=== PATIENT | female | born 2000 | race African-American/Black ===

== ENCOUNTER 2023-05-10 17:38 | Emergency (ER) | payer OTHER ==
[~2023-05-10] VITALS: Ht 165.1 cm; Wt 63.0 kg
[2023-05-10 17:59] VITALS: BP 108/51; PULSE 72; RESP 20; TEMP 98.1; O2SAT 99
[2023-05-10] MEDS ORDERED: DOXY-456 MT (18:07)
[2023-05-10] MEDS ORDERED: CEFTRIAXONE SODIUM 500 MG/VIAL IM ONE (18:15)
[2023-05-10] MEDS ORDERED: DOXYCYCLINE HYCLATE 100MG CAPSULE PO ONE (18:15)
[2023-05-10] MEDS ORDERED: CEFTRIAXONE SODIUM 500 MG/VIAL IM NR (21:00)
[2023-05-10] MEDS ORDERED: DOXYCYCLINE HYCLATE 100MG CAPSULE PO NR (21:00)
[2023-05-13 10:12] LABS: CHLAMYDIA TRACHOMATIS NAA Negative (Negative); NEISSERIA GONORRHOEAE NAA Negative (Negative)
== END 2023-05-10 21:31 | disposition home or self-care (01) ==
LOC: ER 17:38
DX: Z20.2 Contact with and (suspected) exposure to infections with a predominantly sexual mode of transmission (principal)
CPT/HCPCS: 87491; 87591; 99283; J0696; Z7610 ×2

== ENCOUNTER 2023-07-07 10:39 | Emergency (ER) | payer OTHER ==
[~2023-07-07] VITALS: Ht 165.1 cm; Wt 57.6 kg
[~2023-07-07 10:39] MED LIST: DOXY-456 MT
[2023-07-07 10:55] VITALS: TEMP 98.4; O2SAT 100
[2023-07-07 11:22] LABS: ADD RBC MORPHOLOGY YES; BASOPHILS % 0.3 % (0.0-2.0); DIFFERENTIAL COMMENT 1; HEMATOCRIT. 41.4 % (36.0-48.0); HEMOGLOBIN. 13.3 g/dL (12.0-16.0); LYMPHOCYTES % 11.5 % (20.0-50.0); MEAN CORPUSCULAR HEMOGLOBIN 21.9 pg (28.0-32.0); MEAN CORPUSCULAR HGB CONC 32.1 g/dL (31.0-37.0); MEAN CORPUSCULAR VOLUME 68.2 fL (81.0-99.0); MONOCYTES % 4.9 % (2.0-8.0); NEUTROPHILS % 83.3 % (40.0-76.0); PLATELET 316 x1000/uL (130-400); RED BLOOD CELL COUNT 6.07 mill/uL (4.2-5.4); RED CELL DISTRIBUTION WIDTH 17.3 % (11.6-14.6); WHITE BLOOD COUNT 10.8 x1000/uL (4.5-11.0)
[2023-07-07] MEDS ORDERED: DICYCLOMINE 10 MG/5 ML ORAL SYR PO STA (11:39)
[2023-07-07 11:49] LABS: ALANINE AMINOTRANSFERASE 22 IU/L (10-49); ASPARTATE AMINOTRANSFERASE 67 IU/L (<34); BILIRUBIN TOTAL 0.8 mg/dL (0.1-1.0); CALCIUM 9.7 mg/dL (8.7-10.4); CARBON DIOXIDE 22 mEq/L (21-32); CHLORIDE 109 mEq/L (98-107); CREATININE 0.8 mg/dL (0.6-1.0); GLUCOSE 100 mg/dL (70-105); POTASSIUM 3.5 mEq/L (3.5-5.1); PROTEIN TOTAL 8.4 g/dL (6.0-8.3); SODIUM 144 mEq/L (136-145); UREA NITROGEN BLOOD 9 mg/dL (9-23)
[2023-07-07 11:55] LABS: MICROCYTOSIS 3+; PLATELET ESTIMATE NORMAL
[2023-07-07 11:56] LABS: ANISOCYTOSIS 1+
[2023-07-07] MEDS: DIPHENHYDRAMINE 50MG/ML VIAL IV ONE (11:57)
[2023-07-07] MEDS: MAGNESIUM/ALUMINUM HYDROXIDE/SIMETHICONE 30ML UDC PO STA (11:57)
[2023-07-07] MEDS: HALOPERIDOL LACTATE 5MG/ML VIAL IM ONE (11:57)
[2023-07-07] MEDS: SODIUM CHLORIDE 0.9% 1,000 ML IV ONE ×2 (11:57→14:33)
[2023-07-07] MEDS: DICYCLOMINE HCL 10MG CAPSULE PO NR (12:22)
[2023-07-07] MEDS: KETOROLAC 30MG/ML VIAL IV ONE (12:30)
[2023-07-07 12:36] LABS: HCG SCREEN NEGATIVE
[2023-07-07] MEDS: LORAZEPAM 2MG/ML INJ IV ONE (13:15)
[2023-07-07] MEDS ORDERED: METOCLOPRAMIDE HCL 10MG/2ML VIAL IV ONE (14:15)
[2023-07-07 14:17] LABS: CLARITY URINE CLEAR (CLEAR); COLOR URINE YELLOW (YELLOW); GLUCOSE URINE NEGATIVE (NEGATIVE); KETONES URINE 2+ (NEGATIVE); LEUKOCYTE ESTERASE URINE TRACE (NEGATIVE); NITRITE URINE NEGATIVE (NEGATIVE); OCCULT BLOOD URINE 2+ (NEGATIVE); PROTEIN URINE 1+ (NEGATIVE); SPECIFIC GRAVITY URINE 1.028 (1.005-1.030)
[2023-07-07 14:29] LABS: MUCUS URINE 2+ /lpf (< = 2+); SQUAMOUS EPITHELIAL CELL URINE 1+ /lpf (RARE/1+)
[2023-07-07 14:30] LABS: BACTERIA URINE TRACE; RBC URINE 25-50 /hpf (0-2); WBC URINE 0-2 /hpf (0-2)
[2023-07-07 14:41] LABS: *AMPHETAMINES SCREEN URINE NEGATIVE (NEGATIVE); *BARBITURATES SCREEN URINE NEGATIVE (NEGATIVE); *BENZODIAZEPINES SCREEN URINE NEGATIVE (NEGATIVE); *COCAINE SCREEN URINE NEGATIVE (NEGATIVE); CANNABINOID URINE SCREEN PRESUMPTIVE POSITIVE (NEGATIVE); ECSTASY MDMA SCREEN URINE NEGATIVE (NEGATIVE); METHADONE URINE SCREEN Neg (NEGATIVE); OPIATES URINE SCREEN NEGATIVE (NEGATIVE); PHENCYCLIDINE URINE SCREEN NEGATIVE (NEGATIVE)
[2023-07-07] MEDS: FAMOTIDINE 20MG/2ML VIAL IV NR (14:46)
[2023-07-07] MEDS: SODIUM CHLORIDE 0.9% IV NR (15:20)
[2023-07-07] MEDS: METOCLOPRAMIDE HCL IV NR (15:20)
[2023-07-07 16:49] VITALS: BP 118/67; PULSE 77; RESP 18
[2023-07-07] MEDS: KETOROLAC 30MG/ML VIAL IV NR (17:10)
== END 2023-07-07 17:36 | disposition home or self-care (01) ==
LOC: ER 10:39
DX: R11.2 Nausea with vomiting, unspecified (principal); R10.84 Generalized abdominal pain; F12.10 Cannabis abuse, uncomplicated
CPT/HCPCS: 80053; 80305; 81003; 81025; 80320; 84703; 83690; 85025; 36415; 74176; 96361; 96365; 96372; 96375; 99285; J1200; J3490; J1630; J1885; J2060; J2765; J7040; J7030; Z7610 ×4; G0480

== ENCOUNTER 2023-08-13 11:36 | Emergency (ER) | payer OTHER ==
[~2023-08-13] VITALS: Ht 167.6 cm; Wt 59.0 kg
[2023-08-13 11:50] VITALS: BP 130/77; RESP 18; TEMP 98.5; O2SAT 100
[2023-08-13 11:53] VITALS: PULSE 96
[2023-08-13 12:22] LABS: CLARITY URINE CLEAR (CLEAR); COLOR URINE YELLOW (YELLOW); GLUCOSE URINE NEGATIVE (NEGATIVE); KETONES URINE NEGATIVE (NEGATIVE); LEUKOCYTE ESTERASE URINE TRACE (NEGATIVE); NITRITE URINE NEGATIVE (NEGATIVE); OCCULT BLOOD URINE NEGATIVE (NEGATIVE); PH URINE 8.5 (4.5-8.0); PROTEIN URINE NEGATIVE (NEGATIVE)
[2023-08-13 12:33] LABS: BACTERIA URINE 1+; RBC URINE 0-2 /hpf (0-2); SQUAMOUS EPITHELIAL CELL URINE 1+ /lpf (RARE/1+); YEAST URINE NONE SEEN
== END 2023-08-13 13:00 | disposition home or self-care (01) ==
LOC: ER 11:36
DX: Z20.2 Contact with and (suspected) exposure to infections with a predominantly sexual mode of transmission (principal)
CPT/HCPCS: 81003; 99283